=== PATIENT | female | born 1995 | race Caucasian/White ===

== ENCOUNTER 2017-01-26 22:47 | Emergency (ER) | payer OTHER ==
[~2017-01-26] VITALS: Ht 157.5 cm; Wt 46.0 kg
[2017-01-26 22:52] VITALS: TEMP 36.8; Ht 157.5 cm; Wt 46.0 kg
[2017-01-26] MEDS ORDERED: DOXY50CA26 PO (22:58)
--- NOTE | 2017-01-26 23:50 | EMERGENCY ROOM VISIT NOTE ---
History Report prepared by Page: Uri Salomon Under the Supervision of: Dr. Linda Mccoy D.O. First contact with patient: 23:00 Chief Complaint: ANXIETY Stated Complaint: ANXIETY History of Present Illness The patient is a 21 year old female who presents to the Emergency Room with complaints of persistent anxiety beginning about 1 week ago. She notes she has had trouble sleeping, only getting about 2 hours of sleep each night. Her heart has been racing at times, and she has been experiencing chest tightness and difficulty breathing. She reports being able to feel her heart palpitations at night time, and that her heart rate feels lower than baseline. She denies having these symptoms before. The patient reports she has had much stress over the past week in thinking about her future, and getting into vet school. She has had additional stress with school and her upcoming assignments. She was not doing well with school and keeping up earlier, but is doing better now. She tries to not think about her school work. The patient was home recently for spring and was relaxed them, though had some stress with her sister who has anorexia. She denies having any history of eating disorder. She has never be seen by a psychiatrist, and did not seek counselling on the [facility]. She denies any large recent weight changes, nausea, vomiting, abdominal pain, or leg cramping or swelling. She notes she does not currently feel anxious , and she denies . The patient admits to having chills and feeling warm at times. Her last period was about 1 month ago, and she denies any chance of . The patient has never had her thyroid levels checked. The patient admits to a family history of mental health issues. Source of History: patient Onset: about 1 week ago Position: other (global) Quality: other (anxiety) Timing: other (persistent) Associated Symptoms: + chest pain (tighthess), + chills, No abdominal pain, No nausea, No vomiting Note: The patient denies any leg cramping or swelling, and suicidal ideations. Review of Systems See HPI for pertinent positives & negatives. A total of 10 systems reviewed and were otherwise negative. Past Medical & Surgical No known medical problems. Family History Mental disorder Social History Smoking Status: Never Smoker Smokeless Tobacco Use: No Alcohol Use: none Drug Use: none Housing Status: lives with roommate Occupation Status: [employer] student Current/Historical Medications Scheduled Doxycycline (Monohydrate) (Doxycycline), 50 MG PO HS Allergies Coded Allergies: No Known Allergies (Unverified , 01/26/17) Physical Exam Vital Signs Date Time Temp Pulse Resp B/P Pulse Ox O2 Delivery O2 Flow Rate FiO2 01/27/17 02:43 85 18 139/83 95 01/26/17 22:52 36.8 96 18 138/90 96 Room Air Physical Exam HEENT: Head - normocephalic and atraumatic Pupils are equal, round, and reactive to light. Extraocular eye muscles are intact, and sclera are anicteric. Nose - moist nasal mucosa without discharge. Mouth - moist buccal mucosa. Oropharynx is nonerythematous and there is no tonsillar exudate or edema noted. Neck: Supple; no JVD, nuchal rigidity, cervical lymphadenopathy. Heart: Regular rate and rhythm. There is a normal S1 and S2 with no murmurs, clicks, or gallops appreciated. Lungs: Clear to auscultation bilaterally with no wheezes, rales, or rhonchi. Abdomen: Soft, completely nontender, nondistended, with good bowel sounds. There are no palpable pulsatile masses or hepatosplenomegaly. There is no guarding, rigidity, or rebound noted. Extremities: No evidence of cyanosis, clubbing, or edema. There are easily palpable peripheral pulses. Skin: warm and dry with good turgor and no rashes. Psych: Seems slightly anxious but with a normal affect. Medical Decision & Procedures Laboratory Results 01/27/17 00:10 01/27/17 00:10 Test 01/26/17 23:43 01/27/17 00:10 Urine Color YELLOW Urine Appearance CLEAR (CLEAR) Urine pH 6.0 (4.5-7.5) Urine Specific [place] >= 1.030 (1.000-1.030) Urine Protein 2+ (NEG) Urine Glucose (UA) NEG (NEG) Urine Ketones NEG (NEG) Urine Occult Blood TRACE (NEG) Urine Nitrite NEG (NEG) Urine Bilirubin NEG (NEG) Urine Urobilinogen NEG (NEG) Urine Leukocyte Esterase TRACE (NEG) Urine RBC 0-4 /hpf (0-4) Urine WBC 10-30 /hpf (0-5) Urine Epithelial Cells >30 /lpf (0-5) Urine Renal Cells 0-5 /lpf (FEW) Urine Calcium Oxalate Crystals PRESENT (NONE PRSENT) Urine Bacteria 1+ (NEG) Urine Mucus PRESENT (NONE PRSENT) Urine Test NEG (NEG) Red Blood Count 5.20 M/uL (4.2-5.4) Mean Corpuscular Volume 81.5 fL (80-100) Mean Corpuscular Hemoglobin 28.1 pg (25-34) Mean Corpuscular Hemoglobin Concent 34.4 g/dl (32-36) RDW Standard Deviation 40.1 fL (36.4-46.3) RDW Coefficient of Variation 13.4 % (11.5-14.5) Mean Platelet Volume 9.3 fL (7.4-10.4) Anion Gap 10.0 mmol/L (3-11) Est Creatinine Clear Calc Drug Dose 58.7 ml/min Estimated GFR () 83.1 Estimated GFR (Non- 71.7 BUN/Creatinine Ratio 10.7 (10-20) Calcium Level 9.4 mg/dl (8.5-10.1) Total Bilirubin 0.4 mg/dl (0.2-1) Direct Bilirubin 0.1 mg/dl (0-0.2) Aspartate Amino Transf (AST/SGOT) 20 U/L (15-37) Alanine Aminotransferase (ALT/SGPT) 25 U/L (12-78) Alkaline Phosphatase 78 U/L (45-117) Total Protein 8.4 gm/dl (6.4-8.2) Albumin 4.5 gm/dl (3.4-5.0) Thyroid Stimulating Hormone (TSH) 0.927 uIu/ml (0.300-4.500) Laboratory results per my review. Medications Administered Medications (Trade) Dose Ordered Sig/Renny Route Start Time Stop Time Status Last Admin Dose Admin Diphenhydramine HCl (Benadryl Cap) 25 mg NOW ONCE PO 01/27/17 02:30 01/27/17 02:31 DC 01/27/17 02:38 25 MG Lorazepam (Ativan Tab) 0.5 mg NOW STAT SL 01/27/17 02:28 01/27/17 02:29 DC 01/27/17 02:38 0.5 MG Procedure 0228: Ordered Ativan Tab 0.5 mg SL. To take home 0230: Ordered Benadryl Cap 25 mg PO. ECG Indication: other (anxiety) Rate (beats per minute): 81 Rhythm: normal sinus Findings: no acute ischemic change, no ectopy ED Course 231: Past medical records reviewed. The patient was evaluated in room A6. A complete history and physical exam was performed. Laboratory studies were drawn as above. 0229: I reassessed the patient, and she was still slightly anxious but does not want anything for the anxiety. We talked about sleep deprivation, and I will give her Benadryl. 0230: Ordered Benadryl Cap 25 mg PO. 0235: Upon reevaluation, the patient is doing well. I discussed findings and results with the patient. She verbalized agreement of the treatment plan. The patient was discharged home the patient will be discharged with her father. She was given instructions for follow-up with [facility]. Medical Decision The patient is a 21 year old female who presents to the Emergency Room with complaints of persistent anxiety beginning about 1 week ago. Differentials include palpitations, cardiac dysrhythmia, sleep deprivation, eating disorder, and anxiety. Laboratory Interpretations: No leukocytosis; stable H&H; normal TSH; normal glucose and LFTs; normal renal function; negative ; urinalysis appears contaminated with 2+ protein, 10-30 WBC, 1+ bacteria, and trace leukocyte esterase. The patient was given information for follow-up with counseling and psychological services. The patient was given Benadryl here prior to discharge to help with sleep. If she is not able to sleep when she gets home, she was given Ativan to take with her to use for sleep. I've asked the patient to follow-up with student health services. Impression Primary Impression: Anxiety Additional Impression: Insomnia Scribe Attestation The scribe's documentation has been prepared under my direction and personally reviewed by me in its entirety. I confirm that the note above accurately reflects all work, treatment, procedures, and medical decision making performed by me. Departure Information Dispostion Home / Self-Care Referrals [facility] (PCP) Patient Instructions Anxiety Disorder, Insomnia, My [facility] Additional Instructions Benadryl - 25mg every 6 hours as a sleep aid. If the benadryl doesn't work tonight, you may take the ativan Follow up with [facility] on campus as directed. Problem Qualifiers
[2017-01-27 00:05] LABS: MANUAL MICROSCOPIC REQUIRED? YES; URINE APPEARANCE CLEAR (CLEAR); URINE BILIRUBIN NEG (NEG); URINE COLOR YELLOW; URINE NITRITE NEG (NEG); URINE SPECIFIC GRAVITY >= 1.030 (1.000-1.030); UROBILINOGEN NEG (NEG)
[2017-01-27 00:10] LABS: REVIEW REQ? NO
[2017-01-27 00:14] LABS: URINE RBC 0-4 /hpf (0-4)
[2017-01-27 00:15] LABS: URINE BACTERIA 1+ (NEG); URINE MUCUS PRESENT (NONE PRSENT)
[2017-01-27 00:24] LABS: HEMATOCRIT 42.4 % (37-47); MEAN CELL VOLUME 81.5 fL (80-100); MEAN CORPUSCULAR HEMOGLOBIN 28.1 pg (25-34); MEAN CORPUSCULAR HGB CONC 34.4 g/dl (32-36); MEAN PLATELET VOLUME 9.3 fL (7.4-10.4); PLATELET COUNT 240 K/uL (130-400); WHITE BLOOD COUNT 9.38 K/uL (4.8-10.8)
[2017-01-27 00:42] LABS: BUN/CREATININE RATIO 10.7 (10-20); CALCIUM 9.4 mg/dl (8.5-10.1); CREATININE 1.1 mg/dl (0.60-1.20); POTASSIUM 4.5 mmol/L (3.5-5.1)
[2017-01-27 00:52] LABS: THYROID STIMULATING HORMONE 0.927 uIu/ml (0.300-4.500)
[2017-01-27] MEDS ORDERED: LORAZEPAM 0.5 MG TAB SL STA (02:28)
[2017-01-27 02:43] VITALS: BP 139/83; PULSE 85; O2SAT 95
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
== END 2017-01-27 02:45 | disposition home or self-care (01) ==
LOC: C.EDB 22:50 → C.EDA 01-27 02:45
DX: F41.9 Anxiety disorder, unspecified (principal); G47.00 Insomnia, unspecified; Z81.8 Family history of other mental and behavioral disorders

== ENCOUNTER 2017-09-02 15:56 | Emergency (ER) | payer OTHER ==
[~2017-09-02] VITALS: Ht 157.5 cm; Wt 48.6 kg
[~2017-09-02 15:56] MED LIST: DOXY50CA26 PO
[2017-09-02 16:05] VITALS: O2SAT 95; Ht 157.5 cm; Wt 48.6 kg
[2017-09-02 16:38] VITALS: BP 139/79; PULSE 90; TEMP 37.4
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
[2017-09-02] MEDS ORDERED: ONDANSETRON HOME PACK 4MG OD TAB PO ONE (19:45)
[2017-09-02] MEDS ORDERED: HIV POST EXPOSURE PROPHYLAXIS KIT ONE (19:45)
[2017-09-02] MEDS ORDERED: AZITHROMYCIN 250 MG TAB PO STA (19:45)
[2017-09-02] MEDS ORDERED: CEFTRIAXONE SOD 350MG/ML 1 GM VIAL IM STA (19:45)
[2017-09-02] MEDS ORDERED: RALT400T PO (19:50)
[2017-09-02] MEDS ORDERED: TRVHP PO (19:50)
[2017-09-02] MEDS ORDERED: ONDA4TAB10 SL (19:51)
[2017-09-02] MEDS ORDERED: DIPH1TAB PO (22:52)
[2017-09-02] MEDS ORDERED: DSY/50 PO (22:52)
[2017-09-02] MEDS ORDERED: SERT-234 PO (22:52)
[2017-09-02] MEDS ORDERED: LORA-741 PO (22:52)
--- NOTE | 2017-09-03 17:24 | Pharmacy Progress Note ---
ED Pharmacist Progress Note Date of Service: Sep 03, 2017. Received call from outpatient [facility] pharmacy ([facility], ) who stated patient had questions regarding coverage of post exposure prophylaxis. I called the patient who stated she thought she was told that the 28 day supply of post exposure prophylaxis would be covered and I informed her that [facility] had no such program that would fund this. She had not yet allowed the pharmacy to run the RX through her insurance to determine co pay. She inquired if the full course was necessary and I informed her that while I am not the provider and did not evaluate her, if exposure was a concern than a full course would be necessary. I also informed her of the importance of starting and then completing the full course of medication. I also informed her she could try and check with the outpatient pharmacy to see if they could provide her with the potential co-pay. She verbalized understanding and stated she would pursue this course.
== END 2017-09-02 20:45 | disposition home or self-care (01) ==
LOC: C.EDB 15:58
DX: S31.41XA Laceration without foreign body of vagina and vulva, initial encounter (principal); T74.21XA Adult sexual abuse, confirmed, initial encounter; X58.XXXA Exposure to other specified factors, initial encounter; Y92.9 Unspecified place or not applicable

== ENCOUNTER 2019-02-12 23:07 | Inpatient (IN) ==
[2019-02-12 23:46] LABS: Pregnancy Test, Urine Negative (Negative)
[2019-02-12 23:47] LABS: Appearance Urine Clear (Clear); Bacteria Urine Automated Negative (Negative); Bilirubin Urine Negative (Negative); Blood Urine Negative (Negative); Color Urine Yellow; Epithelial Cell Urine Auto >30 /lpf (0-5); Glucose Urine UA Negative (Negative); Ketones Urine Negative (Negative); Leukocyte Esterase Urine 1+ (Negative); Nitrite Urine Negative (Negative); Protein Urine Negative (Negative); RBC Urine Automated 0-4 /hpf (0-4); Specific Gravity Urine 1.011 (1.000-1.030); Urobilinogen Urine Negative (Negative)
[2019-02-12 23:50] LABS: Basophils # (auto) 0.02 K/uL (0-0.2); Basophils % (auto) 0.3 %; Eosinophils # (auto) 0.05 K/uL (0-0.5); Eosinophils % (auto) 0.7 %; Hematocrit (blood only) 40.5 % (37-47); Hemoglobin 13.7 g/dL (12.0-16.0); Immature Granulocytes # (auto) 0.01 K/uL (0.00-0.02); Immature Granulocytes % (auto) 0.1 %; Lymphocytes # (auto) 2.83 K/uL (1.2-3.4); Lymphocytes % (auto) 39.2 %; Mean Corpuscular Hgb Conc 33.8 g/dL (32-36); Mean Corpuscular Volume 82.2 fL (80-100); Monocytes # (auto) 0.54 K/uL (0.11-0.59); Monocytes % (auto) 7.5 %; Neutrophils # (auto) 3.77 K/uL (1.4-6.5); Neutrophils % (auto) 52.2 %; Platelet Count 209 K/uL (130-400); RDW Coefficient of Variation 12.8 % (11.5-14.5); RDW Standard Deviation 38.6 fL (36.4-46.3); Red Blood Count 4.93 M/uL (4.2-5.4); White Blood Count 7.22 K/uL (4.8-10.8)
[2019-02-13 00:08] LABS: Amphetamines+Metham, Urine Neg (Neg); Barbiturates, Urine Neg (Neg); Benzodiazepine, Urine Neg (Neg); Cocaine, Urine Neg (Neg); MDMA (Ecstacy), Urine Neg (Neg); Methadone, Urine Neg (Neg); Opiate, Urine Neg (Neg); Phencyclidine, Urine Neg (Neg)
[2019-02-13 00:11] LABS: Albumin Level 4.2 gm/dl (3.4-5.0); BUN Creatinine Ratio 26.3 (10-20); Calcium 9.1 mg/dl (8.5-10.1); Creatinine Clr Calc Pharmacy 72.1 ml/min; Est GFR (African American) 96.6; Est GFR (Non-African American) 83.4
[2019-02-13 00:22] LABS: Albumin Globulin Ratio 1.1 (0.9-2); Bilirubin,Total 0.2 mg/dl (0.2-1); Globulin 3.7 gm/dl (2.5-4.0); Total Protein 7.9 gm/dl (6.4-8.2)
[2019-02-13 00:56] LABS: Acetaminophen < 2 ug/ml (10-30); Salicylate < 1.7 mg/dl (2.8-20)
--- NOTE | 2019-02-13 06:01 | Emergency Department Note ---
Entered by Gricelda Maddox acting as a scribe for ED Provider Note Name: Natacha Anne Age: 23 Arrives Via: POV Informant: Patient CC: Mental Health Evaluation HPI: The patient is a 23 year old female who presents to the Emergency Room for a mental health evaluation. The patient states that she has been having increased depression over the last few months. She states that she has been having increased thoughts of suicide with a plan to take pills and walk out in front of a car. She states that she just cant catch a break from whats going on inside her head. She notes that she has been talking to her counselor and last saw them yesterday, but it bought a lot of things to surface. The patient n otes that she doesnt really talk to her family or friends about what is going on because she isnt comfortable enough to do that. She notes that she was inpatient in October at the [facility], but is unsure if she is at that same point. The patient complains of loss of appetite. The patient denies ever trying to harm herself, alcohol use, drug use, being a smoker, the chance of , and any physical concerns. ROS: See above HPI for pertinent positives & negatives. A total of 10 systems reviewed and were otherwise negative. Past Medical History: Depression, Anxiety, PTSD Past Surgical History: None Family History: No pertinent family history. Social History: The patient is a single student who lives with her roommate and is employed. She denies smoking tobacco, using drugs, and drinking alcohol. Home Medications: Buspirone, Ativan, Remeron, Seroquel, Aldactone Allergies No known allergies. Physical: Vitals: Temperature: 37, Temperature Source: Oral, Pulse Rate: 82, Respiratory Rate: 18, Blood Pressure: 142/88, Blood Pressure Mean: 106, O2 Saturation: 98% on room air Exam: GENERAL: Patient is sad appearing and in no acute distress. Depressed. EYES: No scleral icterus, unremarkable pupils. ENT: Mucous membranes moist, no nasal congestion. NECK: No masses appreciated, no meningismus, trachea is midline. RESPIRATORY: No dyspnea. Clear to auscultation and equal bilaterally. No wheeze, no rhonchi. CARDIOVASCULAR: Regular rate and rhythm. No murmurs, rubs, gallops appreciated. GASTROINTESTINAL: Abdomen soft, non-tender, no peritonitis. Bowel sounds positive. No masses appreciated. BACK: No midline tenderness, no CVA tenderness EXTREMITIES: Normal motion all extremities, no cyanosis, no edema. NEUROLOGIC: Alert and oriented, no acute motor or sensory deficits, no focal weakness, cranial nerves grossly intact. SKIN: No rash, no jaundice, no diaphoresis. PSYCH: Depressed. Suicidal with a plan. ED Course: Prior Medical Record, Triage/Nursing Notes, Medications, Allergies reviewed by Laura lester Vital Signs: reviewed and remarkable for wnl Labs: Reviewed and remarkable for normal Reassessments/Times: 2323: The patient was evaluated in room A6, and a complete history and physical examination were performed. 0019: I reevaluated the patient and she is stable. She agrees to inpatient treatment on a voluntary basis. Blood pressure: Elevated - [place] to be Situation. Disposition: Signed out to Dr Pierce pending placement. Prescriptions: None. Differentials: Differential: Mood Disorder, Overdose, Infectious, Electrolyte Abnormality, Cardiac, Hepatic, Endocrine, Toxicologic, Neurologic, amongst other pathologies entertained. Medical Decision Making: Pleasant 23 yr old female with worsening depression and now suicidal ideation with plan. She is medically clear. No evidence of injury to self. She is stable, breathing comfortable and cooperative throughout the night. Will need inpatient treatment and agrees with plan for voluntary admission. Signed out to Dr Pierce pending placement. Impression: Suicidal Ideation Depression. Renato Olvera MD The scribe's documentation has been prepared under my direction and personally reviewed by me in its entirety. I confirm that the note above accurately reflect s all work, treatment, procedures, and medical decision making performed by me. Impression & Plan Suicidal ideation, Depression Past Med/Surg History Medical History Depression (Chronic) Anxiety PTSD (post-traumatic stress disorder) Family History Other No pertinent family history Social History Preferred Language: Tanzanian marital status: Single Current Living Situation Comment: Roommate current occupational status: employed and student Feels Safe at Home: Yes Smoking Status: Never smoker Hx Alcohol Use: No Hx Substance Use: No Results & Data Vital Signs Vital Signs - 24 hr 02/12/19 23:11 Temperature 37 C Temperature Source Oral Sepsis Recent Fever Within 48 Hours No Sepsis New/Unexplained Change in Mental Status No Sepsis Action Taken by Nursing No Action Required Pulse Rate 82 Respiratory Rate 18 Respiratory Effort / Characteristics Non-Labored Respiratory Depth Normal Blood Pressure 142/88 H Blood Pressure Mean 106 Pulse Oximetry 98 Oxygen Delivery Method Room Air Home Medications Current Medication List: was personally reviewed by me Laboratory Data Attestation: I reviewed the patient's lab results. Result diagrams: 02/12/19 23:41 02/12/19 23:41 Lab Results 02/12/19 02/12/19 02/12/19 Range/Units 23:23 23:23 23:23 WBC (4.8-10.8) K/uL RBC (4.2-5.4) M/uL Hgb (12.0-16.0) g/dL Hct (37-47) % MCV (80-100) fL MCH (25-34) pg MCHC (32-36) g/dL RDW Std Deviation (36.4-46.3) fL RDW Coeff of [place] (11.5-14.5) % Plt Count (130-400) K/uL MPV (7.4-10.4) fL Immature Gran % (Auto) % Neut % (Auto) % Lymph % (Auto) % [place] % (Auto) % Eos % (Auto) % Baso % (Auto) % Immature Gran # (Auto) (0.00-0.02) K/uL Neut # (Auto) (1.4-6.5) K/uL Lymph # (Auto) (1.2-3.4) K/uL [place] # (Auto) (0.11-0.59) K/uL Eos # (Auto) (0-0.5) K/uL Baso # (Auto) (0-0.2) K/uL Sodium (136-145) mmol/L Potassium (3.5-5.1) mmol/L Chloride (98-107) mmol/L Carbon Dioxide (21-32) mmol/L Anion Gap (3-11) BUN (7-18) mg/dl Creatinine (0.6-1.2) mg/dl Est Cr Clr Drug Dosing ml/min Est GFR ( Amer) Est GFR (Non-Af Amer) BUN/Creatinine Ratio (10-20) Glucose (70-99) mg/dl Calcium (8.5-10.1) mg/dl Total Bilirubin (0.2-1) mg/dl AST (15-37) U/L ALT (12-78) U/L Alkaline Phosphatase (45-117) U/L Total Protein (6.4-8.2) gm/dl Albumin (3.4-5.0) gm/dl Globulin (2.5-4.0) gm/dl Albumin/Globulin Ratio (0.9-2) TSH (0.300-4.500) uIu/ml Urine Color Yellow Urine Appearance Clear (Clear) Urine pH 6.0 (4.5-7.5) Ur Specific [place] 1.011 (1.000-1.030) Urine Protein Negative (Negative) Urine Glucose (UA) Negative (Negative) Urine Ketones Negative (Negative) Urine Blood Negative (Negative) Urine Nitrite Negative (Negative) Urine Bilirubin Negative (Negative) Urine Urobilinogen Negative (Negative) Ur Leukocyte Esterase 1+ H (Negative) Urine WBC (Auto) 10-30 H (0-5) /hpf Urine RBC (Auto) 0-4 (0-4) /hpf U Hyaline Cast (Auto) 1-5 (0-5) /lpf U Epithel Cells (Auto) >30 H (0-5) /lpf Urine Bacteria (Auto) Negative (Negative) Urine Test Negative (Negative) Salicylates (2.8-20) mg/dl Urine Opiates Screen Neg (Neg) Ur Methadone, Qual Neg (Neg) Acetaminophen (10-30) ug/ml Urine Barbiturates Neg (Neg) Ur Phencyclidine (PCP) Neg (Neg) U Amphetamin/Meth Scrn Neg (Neg) MDMA (Ecstasy) Screen Neg (Neg) U Benzodiazepines Scrn Neg (Neg) Ur Cocaine Metabolite Neg (Neg) U Marijuana (THC) Screen Neg (Neg) Ethyl Alcohol mg/dL (0-3) mg/dl 02/12/19 02/12/19 02/12/19 Range/Units 23:41 23:41 23:41 WBC 7.22 (4.8-10.8) K/uL RBC 4.93 (4.2-5.4) M/uL Hgb 13.7 (12.0-16.0) g/dL Hct 40.5 (37-47) % MCV 82.2 (80-100) fL MCH 27.8 (25-34) pg MCHC 33.8 (32-36) g/dL RDW Std Deviation 38.6 (36.4-46.3) fL RDW Coeff of [place] 12.8 (11.5-14.5) % Plt Count 209 (130-400) K/uL MPV 9.0 (7.4-10.4) fL Immature Gran % (Auto) 0.1 % Neut % (Auto) 52.2 % Lymph % (Auto) 39.2 % [place] % (Auto) 7.5 % Eos % (Auto) 0.7 % Baso % (Auto) 0.3 % Immature Gran # (Auto) 0.01 (0.00-0.02) K/uL Neut # (Auto) 3.77 (1.4-6.5) K/uL Lymph # (Auto) 2.83 (1.2-3.4) K/uL [place] # (Auto) 0.54 (0.11-0.59) K/uL Eos # (Auto) 0.05 (0-0.5) K/uL Baso # (Auto) 0.02 (0-0.2) K/uL Sodium 139 (136-145) mmol/L Potassium 4.0 (3.5-5.1) mmol/L Chloride 104 (98-107) mmol/L Carbon Dioxide 29 (21-32) mmol/L Anion Gap 6.0 (3-11) BUN 25 H (7-18) mg/dl Creatinine 0.96 (0.6-1.2) mg/dl Est Cr Clr Drug Dosing 72.1 ml/min Est GFR ( Amer) 96.6 Est GFR (Non-Af Amer) 83.4 BUN/Creatinine Ratio 26.3 H (10-20) Glucose 85 (70-99) mg/dl Calcium 9.1 (8.5-10.1) mg/dl Total Bilirubin 0.2 (0.2-1) mg/dl AST 27 (15-37) U/L ALT 26 (12-78) U/L Alkaline Phosphatase 72 (45-117) U/L Total Protein 7.9 (6.4-8.2) gm/dl Albumin 4.2 (3.4-5.0) gm/dl Globulin 3.7 (2.5-4.0) gm/dl Albumin/Globulin Ratio 1.1 (0.9-2) TSH 2.640 (0.300-4.500) uIu/ml Urine Color Urine Appearance (Clear) Urine pH (4.5-7.5) Ur Specific [place] (1.000-1.030) Urine Protein (Negative) Urine Glucose (UA) (Negative) Urine Ketones (Negative) Urine Blood (Negative) Urine Nitrite (Negative) Urine Bilirubin (Negative) Urine Urobilinogen (Negative) Ur Leukocyte Esterase (Negative) Urine WBC (Auto) (0-5) /hpf Urine RBC (Auto) (0-4) /hpf U Hyaline Cast (Auto) (0-5) /lpf U Epithel Cells (Auto) (0-5) /lpf Urine Bacteria (Auto) (Negative) Urine Test (Negative) Salicylates < 1.7 L (2.8-20) mg/dl Urine Opiates Screen (Neg) Ur Methadone, Qual (Neg) Acetaminophen < 2 L (10-30) ug/ml Urine Barbiturates (Neg) Ur Phencyclidine (PCP) (Neg) U Amphetamin/Meth Scrn (Neg) MDMA (Ecstasy) Screen (Neg) U Benzodiazepines Scrn (Neg) Ur Cocaine Metabolite (Neg) U Marijuana (THC) Screen (Neg) Ethyl Alcohol mg/dL (0-3) mg/dl 02/12/19 Range/Units 23:41 WBC (4.8-10.8) K/uL RBC (4.2-5.4) M/uL Hgb (12.0-16.0) g/dL Hct (37-47) % MCV (80-100) fL MCH (25-34) pg MCHC (32-36) g/dL RDW Std Deviation (36.4-46.3) fL RDW Coeff of [place] (11.5-14.5) % Plt Count (130-400) K/uL MPV (7.4-10.4) fL Immature Gran % (Auto) % Neut % (Auto) % Lymph % (Auto) % [place] % (Auto) % Eos % (Auto) % Baso % (Auto) % Immature Gran # (Auto) (0.00-0.02) K/uL Neut # (Auto) (1.4-6.5) K/uL Lymph # (Auto) (1.2-3.4) K/uL [place] # (Auto) (0.11-0.59) K/uL Eos # (Auto) (0-0.5) K/uL Baso # (Auto) (0-0.2) K/uL Sodium (136-145) mmol/L Potassium (3.5-5.1) mmol/L Chloride (98-107) mmol/L Carbon Dioxide (21-32) mmol/L Anion Gap (3-11) BUN (7-18) mg/dl Creatinine (0.6-1.2) mg/dl Est Cr Clr Drug Dosing ml/min Est GFR ( Amer) Est GFR (Non-Af Amer) BUN/Creatinine Ratio (10-20) Glucose (70-99) mg/dl Calcium (8.5-10.1) mg/dl Total Bilirubin (0.2-1) mg/dl AST (15-37) U/L ALT (12-78) U/L Alkaline Phosphatase (45-117) U/L Total Protein (6.4-8.2) gm/dl Albumin (3.4-5.0) gm/dl Globulin (2.5-4.0) gm/dl Albumin/Globulin Ratio (0.9-2) TSH (0.300-4.500) uIu/ml Urine Color Urine Appearance (Clear) Urine pH (4.5-7.5) Ur Specific [place] (1.000-1.030) Urine Protein (Negative) Urine Glucose (UA) (Negative) Urine Ketones (Negative) Urine Blood (Negative) Urine Nitrite (Negative) Urine Bilirubin (Negative) Urine Urobilinogen (Negative) Ur Leukocyte Esterase (Negative) Urine WBC (Auto) (0-5) /hpf Urine RBC (Auto) (0-4) /hpf U Hyaline Cast (Auto) (0-5) /lpf U Epithel Cells (Auto) (0-5) /lpf Urine Bacteria (Auto) (Negative) Urine Test (Negative) Salicylates (2.8-20) mg/dl Urine Opiates Screen (Neg) Ur Methadone, Qual (Neg) Acetaminophen (10-30) ug/ml Urine Barbiturates (Neg) Ur Phencyclidine (PCP) (Neg) U Amphetamin/Meth Scrn (Neg) MDMA (Ecstasy) Screen (Neg) U Benzodiazepines Scrn (Neg) Ur Cocaine Metabolite (Neg) U Marijuana (THC) Screen (Neg) Ethyl Alcohol mg/dL < 3.0 (0-3) mg/dl Blood Pressure Blood Pressure Findings: Elevated blood pressure Blood Pressure Disposition: elevated BP felt to be situational Discharge Plan Visit Data Chief Complaint: Mental Health Evaluation Stated Complaint: DEPRESSION ED Provider: Chantale Pierce Discharge Problem: Suicidal ideation, Depression Forms Stand Alone Forms: My [facility] Prescriptions Prescriptions: No Action mirtazapine [Remeron] 15 mg Tablet 45 mg PO HS RF: 0 spironolactone [Aldactone] 50 mg Tablet 100 mg PO QAM RF: 0 quetiapine [Seroquel] 50 mg Tablet 100 mg PO HS RF: 0 lorazepam [Ativan] 0.5 mg Tablet 0.5 mg SUBLINGUAL DAILY PRN (Reason: Anxiety) RF: 0 buspirone 7.5 mg Tablet 7.5 mg PO BID RF: 0 Discharge Problem: Depression Qualifiers: Depression Type: major depressive disorder Major depression recurrence: recurrent Active/Remission status: currently active Major depression episode severity: severe Psychotic features: without psychotic features Qualified Code(s): F33.2 - Major depressive disorder, recurrent severe without psychotic features The vaishaliibe's documentation has been prepared under my direction and personally reviewed by me in its entirety. I confirm that the note above accurately reflects all work, treatment, procedures, and medical decision making performed by me.
[2019-02-13] MEDS ORDERED: SODIUM CHLORIDE 0.65% NA SOLN 45 ML (OCEAN) PRN (12:16)
[2019-02-13] MEDS ORDERED: MAGNESIUM HYDROXIDE SUSP 30 ML UDC PO PRN (12:16)
[2019-02-13] MEDS ORDERED: ALUMINUM/MAGNESIUM SUSP 30 ML UDC PO PRN (12:16)
[2019-02-13] MEDS ORDERED: ACETAMINOPHEN 325 MG TAB PO PRN (12:16)
[2019-02-13] MEDS ORDERED: BISMUTH SUBSALICYLATE PER ML OMNICELL CHARGE PO PRN (12:16)
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
[2019-02-13] MEDS: SPIRONOLACTONE 100 MG TAB PO SCH (15:11)
--- NOTE | 2019-02-13 15:30 | Emergency Department Note ---
ED Visit Note I received this patient in signout at the change of shift from Dr. Olvera, pending mental health bed search. The patient was accepted to 3 S. on a voluntary basis. . : Depression Qualifiers: Depression Type: major depressive disorder Major depression recurrence: recurrent Active/Remission status: currently active Major depression episode severity: severe Psychotic features: without psychotic features Qualified Code(s): F33.2 - Major depressive disorder, recurrent severe without psychotic features
[2019-02-13] MEDS ORDERED: BUSPIRONE HCL 7.5 MG TAB PO SCH ×2 (17:00)
[2019-02-13] MEDS: [UNRECOGNIZED DRUG - OTHER] TOP SCH (21:46)
[2019-02-13] MEDS: [UNRECOGNIZED DRUG - OTHER] TOP SCH (21:47)
[2019-02-13] MEDS: MIRTAZAPINE TAB 15 MG TAB PO SCH (21:49)
[2019-02-13] MEDS: QUETIAPINE FUMARATE 100 MG TABLET PO SCH (21:49)
[2019-02-13] MEDS: QUETIAPINE FUMARATE 25 MG TABLET PO SCH (22:05)
[2019-02-14 08:09] LABS: Glucose Fasting 83 mg/dl (70-99)
[2019-02-14 08:15] LABS: Chol HDL Ratio 3; Cholesterol 141 mg/dl (0-200); HDL Cholesterol 49 mg/dl; LDL Cholesterol Calculated 79 mg/dl; Triglycerides 67 mg/dl (0-150); VLDL Cholesterol 13 mg/dl
[2019-02-14] MEDS ORDERED: BUSPIRONE HCL 7.5 MG TAB PO SCH (09:00)
[2019-02-14] MEDS ORDERED: SPIRONOLACTONE 100 MG TAB PO SCH (09:00)
[2019-02-14] MEDS: QUETIAPINE FUMARATE 25 MG TABLET PO SCH ×2 (09:15→17:49)
[2019-02-14] MEDS: SPIRONOLACTONE 100 MG TAB PO SCH (09:15)
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
[2019-02-14] MEDS: DAPSONE 7.5% TOP SCH (11:13)
[2019-02-14] MEDS: [UNRECOGNIZED DRUG - OTHER] TOP SCH ×2 (11:14→21:52)
[2019-02-14] MEDS: MIRTAZAPINE TAB 15 MG TAB PO SCH (21:51)
[2019-02-14] MEDS: QUETIAPINE FUMARATE 100 MG TABLET PO SCH (21:51)
[2019-02-14] MEDS: [UNRECOGNIZED DRUG - OTHER] TOP SCH (21:52)
[2019-02-15] MEDS: SPIRONOLACTONE 100 MG TAB PO SCH (09:19)
[2019-02-15] MEDS: [UNRECOGNIZED DRUG - OTHER] TOP SCH ×2 (09:19→21:27)
[2019-02-15] MEDS: DAPSONE 7.5% TOP SCH (09:19)
[2019-02-15] MEDS: QUETIAPINE FUMARATE 25 MG TABLET PO SCH ×2 (09:20→17:16)
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
[2019-02-15] MEDS: QUETIAPINE FUMARATE 100 MG TABLET PO SCH (21:26)
[2019-02-15] MEDS: MIRTAZAPINE TAB 15 MG TAB PO SCH (21:26)
[2019-02-15] MEDS: [UNRECOGNIZED DRUG - OTHER] TOP SCH (21:29)
[2019-02-16] MEDS: SPIRONOLACTONE 100 MG TAB PO SCH (08:42)
[2019-02-16] MEDS: QUETIAPINE FUMARATE 25 MG TABLET PO SCH ×2 (08:42→17:57)
[2019-02-16] MEDS: [UNRECOGNIZED DRUG - OTHER] TOP SCH ×2 (09:58→21:35)
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
[2019-02-16] MEDS: DAPSONE 7.5% TOP SCH (10:26)
[2019-02-16] MEDS: QUETIAPINE FUMARATE 100 MG TABLET PO SCH (21:36)
[2019-02-16] MEDS: MIRTAZAPINE TAB 15 MG TAB PO SCH (21:37)
[2019-02-16] MEDS: [UNRECOGNIZED DRUG - OTHER] TOP SCH (21:39)
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
[2019-02-17] MEDS: QUETIAPINE FUMARATE 25 MG TABLET PO SCH ×2 (09:26→17:50)
[2019-02-17] MEDS: [UNRECOGNIZED DRUG - OTHER] TOP SCH ×2 (09:26→22:06)
[2019-02-17] MEDS: SPIRONOLACTONE 100 MG TAB PO SCH (09:26)
[2019-02-17] MEDS: DAPSONE 7.5% TOP SCH (09:27)
[2019-02-17] MEDS: [UNRECOGNIZED DRUG - OTHER] TOP SCH (09:27)
[2019-02-17] MEDS: MIRTAZAPINE TAB 15 MG TAB PO SCH (22:05)
[2019-02-17] MEDS: QUETIAPINE FUMARATE 100 MG TABLET PO SCH (22:05)
[2019-02-18] MEDS: SPIRONOLACTONE 100 MG TAB PO SCH (09:27)
[2019-02-18] MEDS: QUETIAPINE FUMARATE 25 MG TABLET PO SCH ×2 (09:29→18:08)
[2019-02-18] MEDS: [UNRECOGNIZED DRUG - OTHER] TOP SCH ×2 (09:30→21:20)
[2019-02-18] MEDS: [UNRECOGNIZED DRUG - OTHER] TOP SCH (09:31)
[2019-02-18] MEDS: DAPSONE 7.5% TOP SCH (09:31)
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
[2019-02-18] MEDS: QUETIAPINE FUMARATE 100 MG TABLET PO SCH (21:19)
[2019-02-18] MEDS: MIRTAZAPINE TAB 15 MG TAB PO SCH (21:19)
[2019-02-19] MEDS: QUETIAPINE FUMARATE 25 MG TABLET PO SCH (09:04)
[2019-02-19] MEDS: SPIRONOLACTONE 100 MG TAB PO SCH (09:04)
[2019-02-19] MEDS: [UNRECOGNIZED DRUG - OTHER] TOP SCH (09:05)
[2019-02-19] MEDS: DAPSONE 7.5% TOP SCH (09:05)
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
== END 2019-02-19 16:05 | disposition home or self-care (01) | DRG 885 ==
LOC: ED 23:07 → 3S 02-13 12:41 → SUATTDRO 02-13 12:49